=== PATIENT | male | born 1965 | race Two or more races ===

== ENCOUNTER 2024-06-12 06:37 | Emergency (ER) | payer MEDICAID, SELFPAY ==
[2024-06-12 06:40] VITALS: BMI 31.8
[2024-06-12 06:48] VITALS: BP 127/81; PULSE 55; RESP 19; TEMP 36.8; O2SAT 99
--- NOTE | 2024-06-12 07:10 | XR_ITS ---
Examination:Right femur Technique: 5 views of the right femur Exam date and time:06/12/2024, 8:54 AM. INDICATION: Trauma. FINDINGS: No fracture or dislocation. No soft tissue abnormality or foreign body. IMPRESSION: Negative exam
--- NOTE | 2024-06-12 07:10 | XR_ITS ---
Examination:Right hip AP, lateral, AP pelvis 3 views Technique: Hip AP lateral, AP pelvis, 3 views Exam date and time:06/12/2024, 8:54 AM. INDICATION: Trauma. FINDINGS: No fracture or dislocation. No soft tissue abnormality or foreign body. IMPRESSION: Negative exam
[2024-06-12 08:04] VITALS: BP 125/77; PULSE 60; RESP 16; TEMP 36.5; O2SAT 99
--- NOTE | 2024-06-12 08:18 | EDNOTE_ITS ---
Lower Extremity Injury RME/HPI General Chief Complaint: Extremity Injury, Lower Stated Complaint: FALL, RT LEG PAIN Time Seen by Provider: 06/12/24 07:10 Arrival date/time: 06/12/24 06:37 Limitations: no limitations Related Data Previous Rx's ?Medication ?Instructions ?Recorded ibuprofen 600 mg tablet 600 mg PO Q6H #30 tabs 06/12 Allergies Allergy/AdvReac Type Severity Reaction Status Date / Time No Known Allergies Allergy Verified 06/12/24 06:40 Review of Systems Review of Systems Systems Reviewed: All systems reviewed, normal except as documented Constitutional Constitutional: Reports system reviewed and no additional complaints, except as documented, Denies fever(s) and Denies headache(s) Eyes Eyes: Reports system reviewed and no additional complaints, except as documented and Denies blurry vision ENT Ears, Nose, Mouth, and Throat: Reports system reviewed and no additional complaints, except as documented, Denies headache(s), Denies nasal congestion, Denies nasal discharge and Denies neck pain Cardiovascular Cardiovascular: Reports system reviewed and no additional complaints, except as documented, Denies chest pain and Denies dyspnea Respiratory Respiratory: Reports system reviewed and no additional complaints, except as documented, Denies chest congestion, Denies cough and Denies dyspnea Gastrointestinal Gastrointestinal: Reports system reviewed and no additional complaints, except as documented and Denies abdominal pain Musculoskeletal Musculoskeletal: Reports system reviewed and no additional complaints, except as documented, Reports arthralgias, Denies deformity, Denies neck pain, Denies numbness, Reports stiffness and Denies tingling Integumentary/Breasts Skin/Breast: Reports system reviewed and no additional complaints, except as documented and Denies rash Neurologic Neurologic: Reports system reviewed and no additional complaints, except as documented, Reports as per HPI, Denies headache(s), Denies numbness and Denies tingling Past Medical History Social History SMOKING STATUS: Never smoker ED Exam General Limitations: Present no limitations General appearance: Present alert and in no apparent distress Head Head exam: Present atraumatic, normocephalic and normal inspection Eye Eye exam: Present normal appearance, PERRL and EOMI; Absent conjunctival injection ENT ENT exam: Present normal exam, normal oropharynx and mucous membranes moist Neck Neck exam: Present normal inspection, full ROM and trachea midline Chest Chest inspection: Present normal inspection and symmetric chest wall rise Respiratory Respiratory exam: Present normal lung sounds bilaterally Cardiovascular Cardiovascular exam: Present regular rate, normal rhythm and normal heart sounds Abdominal Exam Abdominal exam: Present soft and normal bowel sounds Extremities Exam Extremities exam: Present full ROM, tenderness and normal capillary refill; A bsent pedal edema, joint swelling or calf tenderness Back Exam Back exam: Present normal inspection and full ROM Neurological Exam Neurological exam: Present alert, oriented X3 and CN II-XII intact Psychiatric Psychiatric exam: Present normal affect and normal mood Skin Skin exam: Present warm, dry, intact and normal color Course Quality Measures none Orders Category Date Time Status XR femur RT 2V Stat Exams 06/12/24 07:10 Completed XR hip RT w pelvis 2-3V Stat Exams 06/12/24 07:10 Completed Vital Signs Vital signs: Vital Signs Temperature 98.2 F 06/12/24 06:48 Pulse Rate 55 L 06/12/24 06:48 Respiratory Rate 19 06/12/24 06:48 Blood Pressure 127/81 06/12/24 06:48 Pulse Oximetry (%) 99 06/12/24 06:48 Oxygen Delivery Method Room Air 06/12/24 06:48 O2 saturation 99% r.a wnl Extremity Injury, Lower Patient data External records reviewed:: [facility] previous records Clinical information provided by:: patient Social determinants that could affect healthcare access:: none Patient has the following chronic illnesses:: none How is presenting disease/condition affected by chronic disease/condition?: no chronic disease Evaluation data The following diagnostics were reviewed and interpreted by me:: radiology exam(s) Lab and/or radiology exams considered but not ordered:: Radiology obtain Interpretation Summary: reviewed by me Medications / Prescriptions Medications or Prescriptions considered but not ordered:: given Medication administrations:: given Consultations Consultation(s) initiated? (list below): No Diagnosis Extremity Injury, Lower Differential Diagnosis: other Most likely diagnosis given after review of the tests above:: Hip pain, hip strain, fracture Admission Indicated Admission indicated?: not indicated Admission Request Was there a request for admission?: No Disposition Plan Disposition Plan: Discharge Discharge Attestation Discharge Attestation: The patient and all family members were given an opportunity to ask questions and understood the discharge instructions. Discharge instructions specifically effects, indications for sooner follow up or return to the emergency department, and the expected course of current diagnosis. Patient condition: Stable Discharge Plan Plan Patient Disposition: HOME (Self Care) Disposition Comment: Stable Prescriptions/Referrals Prescriptions/Med Rec: New ibuprofen 600 mg tablet 600 mg PO Q6H Qty: 30 0RF Referrals: No Primary/Family,Physician [Primary Care Provider] - In 1 week Problem List Clinical Impression: Hip pain, right, Leg pain, right Patient/Caregiver Discharge Instructions Education Materials: ED Arthralgia Additional Instructions: Please follow up with your primary care doctor in the next 24-48hrs for any worsening symptoms return here immediately Print Language: Greenlandic Stand Alone Forms: Elana Award Info., Patient Portal Info Letter PA/PEDIATRIC CLINICAL NURSE SPECIALIST Supervising Physician PA/PEDIATRIC CLINICAL NURSE SPECIALIST Supervising Physician: Dr lara
== END 2024-06-12 08:55 | disposition home or self-care (01) ==
PROVIDERS: Emergency Provider Emergency Medicine
DX: M79.604 Pain in right leg (principal); M25.551 Pain in right hip
CPT/HCPCS: 73502; 73552; 99283